=== PATIENT | male | born 1950 | race Caucasian/White ===

== ENCOUNTER 2020-01-05 11:08 | Emergency (ER) | payer MEDICARE, BC ==
[2020-01-05] MEDS ORDERED: ONDANSETRON ODT 4 MG TABLET TL STA (12:06)
[2020-01-05] MEDS ORDERED: HYDROmorphone 1 MG/ML CARPUJECT IM STA ×3 (12:06→13:49)
--- NOTE | 2020-01-05 12:07 | ED Physician Documentation ---
PD HPI BACK PAIN - Stated complaint Stated Complaint: BACK PX - Chief complaint Chief Complaint: Back Pain - History obtained from History obtained from: Patient, Family () - Additional information Additional information: 69-year-old gentleman, very healthy at baseline presents with 2 weeks of increasing back pain in the lumbar spine and radiating towards the left hip. It is much worse with motion, up to a few days ago it was painless at rest. Now it is slightly painful even at rest. It is much worse with position changes. It is a sharp pain in certain motions make it feel like he is being stabbed in the left leg. There is no associated weakness, numbness, tingling, saddle anesthesia, incontinence, or fevers. No history of prior significant back issues. There is no specific trauma except for lifting and bending. Review of Systems Constitutional: reports: Reviewed and negative Eyes: reports: Reviewed and negative Ears: reports: Reviewed and negative Nose: reports: Reviewed and negative Throat: reports: Reviewed and negative Cardiac: reports: Reviewed and negative PD PAST MEDICAL HISTORY - Past Medical History Cardiovascular: None Respiratory: None Neuro: None Endocrine/Autoimmune: None GI: None : None HEENT: None Psych: None Musculoskeletal: None Derm: None - Past Surgical History Past Surgical History: Yes Ortho: Arthroscopic surgery HEENT: Tonsil/Adenoidectomy - Present Medications Home Medications: Ambulatory Orders Medication Instructions Recorded Confirmed Gabapentin [Neurontin] 300 mg PO TID #60 capsule 01/05/20 Methocarbamol [Robaxin-750] 750 mg PO TID PRN #30 tablet 01/05/20 Oxycodone HCl/Acetaminophen 1 - 2 each PO Q6H PRN #20 tablet 01/05/20 [Percocet 5-325 mg Tablet] - Allergies Allergies/Adverse Reactions: Allergies Allergy/AdvReac Type Severity Reaction Status Date / Time Penicillins Allergy Hives Verified 01/05/20 11:20 - Social History Does the pt smoke?: No Smoking Status: Never smoker Does the pt drink ETOH?: Yes ETOH Use: Beer Does the pt have substance abuse?: No - Immunizations Immunizations are current?: Yes PD ED PE NORMAL - Vitals Vital signs reviewed: Yes - General General: Alert and oriented X 3, No acute distress - Back Back: No spinal TTP (Quite tender in the left sciatic notch, laying flat and hurts to move. No midline spinal tenderness.), Other (The patient has equal and normal Achilles and patellar reflexes bilaterally. Normal sensation in all areas of the legs. Patient denies saddle anesthesia. Normal strength in flexion-extension at the ankles, knees, and flexion of the hips.) - Derm Derm: No rash - Neuro Neuro: Alert and oriented X 3, Normal speech - Psych Psych: Normal mood, Normal affect Results - Vitals Vitals: Vital Signs - 24 hr 01/05/20 01/05/20 01/05/20 11:15 11:34 12:41 Temperature 36.8 C Heart Rate 86 82 66 Respiratory 20 16 16 Rate Blood Pressure 142/74 H 147/84 H 136/75 H O2 Saturation 98 97 96 01/05/20 01/05/20 13:57 15:08 Temperature 36.8 C 36.9 C Heart Rate 62 75 Respiratory 16 16 Rate Blood Pressure 136/68 H 159/93 H O2 Saturation 96 94 Oxygen O2 Source Room air - Rads (name of study) CT L spine Radiology: EMP read contemporaneously Procedures - General procedure General procedure: Trigger point injection was done on the left side superior buttock in the area of most tenderness with a mixture of 9 mL of 0.5% Marcaine and 1 mL with 40 mg of triamcinolone. PD MEDICAL DECISION MAKING - ED course ED course: CT L spine w/o: Bones: No acute vertebral body compression fractures. No suspicious lytic or blastic bony lesions. Central spinal caliber is of normal overall caliber. No pars defects. Mild levoconvex scoliotic curvature is seen. T12-L1: Bridging anterior osteophytes are seen. No significant neural foraminal or central canal narrowing can be seen. L1-L2: No significant abnormality is seen. L2-L3: The disc height is well-preserved. Mild disc bulge is seen. Mild facet hypertrophy is seen. Mild to moderate bilateral neuroforaminal narrowing is seen. Minimal central canal narrowing is seen. L3-L4: The disc height is well-preserved. There is at least moderate disc bulge, which is eccentric to the left. Mild to moderate facet hypertrophy is seen. There is mild to moderate right-sided and at least moderate left-sided neuroforaminal narrowing seen. Mild to moderate central canal narrowing is seen. L4-L5: The disc height is well- preserved. Moderate disc bulge is seen, which is eccentric to the right. There is a mild central disc protrusion. Mild to moderate facet hypertrophy is seen. There is at least moderate bilateral neuroforaminal narrowing seen. Moderate central canal narrowing is seen. L5-S1: The disc height is well-preserved. Mild disc bulge is seen, with a mild disc protrusion involving the right lateral recess/right foraminal region, as on series 3 image 81. Mild to moderate facet hypertrophy is seen. There is moderate right-sided and minimal left-sided neuroforaminal narrowing seen. Mild to moderate central canal narrowing is seen. Soft tissues: No retroperitoneal masses or hematomas. Visualized aorta is normal in caliber. Minimal sigmoid diverticulosis, without active diverticulitis can be seen. 69-year-old gentleman presents with severe unrelenting lumbar radiculopathy. Pain was difficult to control but we were able to get on top of it with divided doses of IM narcotics x3 and Toradol. Also a trigger point injection. Other than advanced age, no "red flags" for more severe disease. But because of age, CT was done to rule out metastatic/malignant disease. Departure - Departure Disposition: 01 Home, Self Care Clinical Impression: Lumbar radiculopathy, acute Condition: Good Record reviewed to determine appropriate education?: Yes Instructions: ED Sciatica Prescriptions: Gabapentin [Neurontin] 300 mg PO TID #60 capsule Oxycodone HCl/Acetaminophen [Percocet 5-325 mg Tablet] 1 - 2 each PO Q6H PRN #20 tablet PRN Reason: pain Methocarbamol [Robaxin-750] 750 mg PO TID PRN #30 tablet PRN Reason: Spasms Comments: Follow-up with your doctor next week as scheduled. Return for new or worsening symptoms. Especially, as discussed, if you were to develop numbness around your private parts or being incontinent of bowel or bladder or run a fever or if pain is just simply intolerable. I have also written the order for physical therapy to evaluate and treat lumbar radiculopathy 3 times a week for 6 weeks. Do not drink or drive while taking narcotic pain medication. Note that many narcotic pain relievers also contain Tylenol/acetaminophen. Please ensure that your total dose of acetaminophen from all sources does not exceed 3 g (3000 mg) per day. You may get constipated while on this medication. Take a stool softener such as Colace twice a day while you are on it. Also add an [id number] laxative such as senna or MiraLAX on any day that you do not have a bowel movement. If you received a narcotic pain medication or sedative while in the emergency department, do not drive for the next 24 hours.
--- NOTE | 2020-01-05 12:46 | CT Report ---
PROCEDURE: LUMBAR SPINE WO INDICATIONS: back pain TECHNIQUE: Noncontrast 3 mm thick sections acquired from the T12 level to the sacrum. Sagittal and coronal refo rmats were constructed. For radiation dose reduction, the following was used: automated exposure co ntrol, adjustment of mA and/or kV according to patient size. COMPARISON: None. FINDINGS: Image quality: Excellent. Bones: No acute vertebral body compression fractures. No suspicious lytic or blastic bony lesions. Central spinal caliber is of normal overall caliber. No pars defects. Mild levoconvex scoliotic curvature is seen. T12-L1: Bridging anterior osteophytes are seen. No significant neural foraminal or central canal na rrowing can be seen. L1-L2: No significant abnormality is seen. L2-L3: The disc height is well-preserved. Mild disc bulge is seen. Mild facet hypertrophy is seen. Mild to moderate bilateral neuroforaminal narrowing is seen. Minimal central canal narrowing i s seen. L3-L4: The disc height is well-preserved. There is at least moderate disc bulge, which is eccentric to the left. Mild to moderate facet hypertrophy is seen. There is mild to moderate right-sided and a t least moderate left-sided neuroforaminal narrowing seen. Mild to moderate central canal narrowing i s seen. L4-L5: The disc height is well-preserved. Moderate disc bulge is seen, which is eccentric to the ri ght. There is a mild central disc protrusion. Mild to moderate facet hypertrophy is seen. There is at least moderate bilateral neuroforaminal narrowing seen. Moderate central canal narrowing is seen. L5-S1: The disc height is well-preserved. Mild disc bulge is seen, with a mild disc protrusion invo lving the right lateral recess/right foraminal region, as on series 3 image 81. Mild to moderate face t hypertrophy is seen. There is moderate right-sided and minimal left-sided neuroforaminal narrowing seen. Mild to moderate central canal narrowing is seen. Soft tissues: No retroperitoneal masses or hematomas. Visualized aorta is normal in caliber. Minim al sigmoid diverticulosis, without active diverticulitis can be seen. IMPRESSION: Multiple levels of lumbar spine degenerative change are seen. When clinically appropriate, please consider a dedicated lumbar spine MRI for further evaluation (ass uming that there is no contraindication). Reviewed by: Janes Cornejo MD on 01/05/2020 11:45 AM AKYUNG Approved by: Janes Cornejo MD on 01/05/2020 11:45 AM AKYUNG Station ID: [id number]
[2020-01-05] MEDS ORDERED: KETOROLAC 60 MG/2 ML VIAL IM STA (12:58)
[2020-01-05 15:10] VITALS: BP 159/93
[2020-01-05] MEDS ORDERED: BUPIVACAINE 0.5% PF 10 ML VIAL SUBQ STA (15:11)
[2020-01-05] MEDS ORDERED: TRIAMCINOLONE 40 MG/ML VIAL IM STA (15:11)
== END 2020-01-05 15:49 | disposition home or self-care (01) ==
LOC: ED 11:08
DX: M47.26 Other spondylosis with radiculopathy, lumbar region (principal)
CPT/HCPCS: 20552; 72131; 96372; 99284; J1170; Q0162